=== PATIENT | female | born 2000 | race Caucasian/White ===

== ENCOUNTER 2022-01-15 15:53 | Emergency (ER) | payer SELFPAY ==
[2022-01-15 16:15] LABS: HEMOGLOBIN 9.6 gm/dl (12.3-15.3); RED BLOOD COUNT 4.35 M/UL (4.00-5.10); WHITE BLOOD COUNT 9.2 K/UL (4.5-11.0)
[2022-01-15 16:38] LABS: BUN/CREATININE RATIO 29 (0-10)
[2022-01-15] MEDS ORDERED: IRON325 M1 PO (18:35)
== END 2022-01-15 18:44 | disposition home or self-care (01) ==
LOC: ER1 15:53
PROVIDERS: Emergency Medicine
DX: K21.9 Gastro-esophageal reflux disease without esophagitis (principal); D50.9 Iron deficiency anemia, unspecified; Z87.42 Personal history of other diseases of the female genital tract; Z90.89 Acquired absence of other organs; F17.290 Nicotine dependence, other tobacco product, uncomplicated
CPT/HCPCS: 80053; 81001; 82150; 83690; 84703; 85025; 99284